=== PATIENT | male | born 1955 | race Caucasian/White ===

== ENCOUNTER → 2017-01-05 | Outpatient (CLI) | payer OTHER ==
[~2017-01-05] MED LIST: CHOL200012 PO; CIPR500T87 PO; CYAN1TAB29 PO; HYDR-882 PO; MV,M1TAB PO; TAMS0.4C2 PO; VITAMIN B6 PO
== END | disposition home or self-care (01) ==
LOC: CFH 10:46
PROVIDERS: ATTEND Internal Medicine Rheumatology
DX: M50.222 Other cervical disc displacement at C5-C6 level (principal); M48.02 Spinal stenosis, cervical region; M50.221 Other cervical disc displacement at C4-C5 level; M50.21 Other cervical disc displacement, high cervical region; M50.223 Other cervical disc displacement at C6-C7 level; M25.78 Osteophyte, vertebrae
CPT/HCPCS: 72141

== ENCOUNTER 2017-08-09 15:28 | Inpatient (IN) | payer OTHER ==
[~2017-08-09] VITALS: Ht 180.3 cm; Wt 79.8 kg
[2017-08-09] MEDS ORDERED: ALBUTEROL SULFATE 2.5MG/0.5ML NPPB ONE (16:30)
[2017-08-09] MEDS ORDERED: AZITHROMYCIN 500 MG in SODIUM CHLORIDE 0.9% 250 ML IVPB ONE (16:30)
[2017-08-09] MEDS ORDERED: CEFTRIAXONE PMX 1GM/50ML 50 ML IV ONE (16:30)
[2017-08-09] MEDS ORDERED: CEFTRIAXONE PMX 1GM/50ML 50 ML ONE (16:49)
[2017-08-09] MEDS ORDERED: OMNIPAQUE 350 MG/ML, 100ML BOTTLE ONE (17:16)
[2017-08-09] MEDS ORDERED: ALBUTEROL SULFATE 2.5 MG/3 ML ONE (18:07)
[2017-08-09] MEDS ORDERED: SODIUM CHLORIDE FLUSH 10ML SYR IVF PRN (18:30)
[2017-08-09] MEDS ORDERED: morphine SULFATE 10 MG/ML, 1ML IVPush PRN (20:00)
[2017-08-09] MEDS ORDERED: DOCUSATE 100 MG CAPSULE PO PRN (20:00)
[2017-08-09] MEDS ORDERED: ONDANSETRON 2MG/ML, 2ML IVPush PRN (20:00)
[2017-08-09] MEDS ORDERED: OXYcodone IR 5MG TABLET PO PRN (20:00)
[2017-08-09] MEDS ORDERED: GUAIFENESIN/DM 200-20MG, 10ML UDC PO PRN ×2 (20:00)
[2017-08-09] MEDS ORDERED: ACETAMINOPHEN 325 MG TABLET PO PRN (20:00)
[2017-08-09] MEDS ORDERED: hydrALAzine 20 MG/ML, 1ML IVPush PRN (20:00)
[2017-08-09 22:09] VITALS: BP 158/105
[2017-08-09] MEDS: SODIUM CHLORIDE 0.9% 1,000 ML IV SCH (23:02)
[2017-08-09] MEDS: GABAPENTIN 300 MG CAPSULE PO SCH (23:03)
[2017-08-09] MEDS: methylPREDNISolone SOD SUCC 40 MG/ML IVPush SCH (23:03)
[2017-08-09] MEDS: CYCLOBENZAPRINE 10 MG TABLET PO SCH (23:03)
[2017-08-09] MEDS: CIPROFLOXACIN/PMX 400MG/200ML 200 ML IV SCH (23:03)
[2017-08-10] MEDS ORDERED: ALBUTEROL SULFATE 2.5 MG/3 ML NPPB PRN (01:30)
[2017-08-10 02:00] VITALS: BP 173/105
[2017-08-10 06:00] LABS: BLOOD UREA NITROGEN 9 mg/dL (7-18)
[2017-08-10 06:02] LABS: HEMATOCRIT 41.3 % (39.2-51.8); HEMOGLOBIN 14.1 g/dL (13.7-18.0); WHITE BLOOD COUNT 3.8 x10^3/uL (3.4-10)
[2017-08-10] MEDS: methylPREDNISolone SOD SUCC 40 MG/ML IVPush SCH ×2 (06:02→11:15)
[2017-08-10 06:13] LABS: ASPARTATE AMINO TRANSFERASE 11 U/L (15-37)
[2017-08-10 08:32] VITALS: BP 165/108
[2017-08-10] MEDS: CIPROFLOXACIN/PMX 400MG/200ML 200 ML IV SCH ×2 (08:32→21:55)
[2017-08-10] MEDS: GABAPENTIN 300 MG CAPSULE PO SCH ×2 (08:34→21:56)
[2017-08-10] MEDS: CYCLOBENZAPRINE 10 MG TABLET PO SCH ×3 (08:34→21:56)
[2017-08-10] MEDS: MULTIVITAMINS/MINERALS TABLET PO SCH (08:34)
[2017-08-10] MEDS: SODIUM CHLORIDE 0.9% 1,000 ML IV SCH ×2 (08:34→21:57)
[2017-08-10] MEDS: DULOXETINE 30 MG CAPSULE.DR PO SCH (08:34)
[2017-08-10] MEDS: TAMSULOSIN 0.4 MG CAP.ER.24H PO SCH (08:34)
[2017-08-10] MEDS: CYANOCOBALOMIN 100MCG TABLET PO SCH (08:35)
[2017-08-10] MEDS: PYRIDOXINE 50MG TABLET PO SCH (08:35)
[2017-08-10] MEDS: CHOLECALCIFEROL 1,000 UNIT TABLET PO SCH (08:35)
[2017-08-10 09:40] VITALS: BP 135/76
[2017-08-10] MEDS ORDERED: FUROSEMIDE 20 MG/2 ML IV ONE (13:00)
[2017-08-10] MEDS ORDERED: POTASSIUM CHLORIDE 20 MEQ TAB.ER.PRT PO ONE (13:00)
[2017-08-10 13:22] VITALS: BP 139/92
[2017-08-10 20:00] VITALS: BP 131/85
[2017-08-10] MEDS: NICOTINE 21 MG/24 HR PATCH.TD24 TD PRN (22:12)
[2017-08-11 02:00] VITALS: BP 138/93
[2017-08-11 06:03] LABS: BLOOD UREA NITROGEN 14 mg/dL (7-18)
[2017-08-11 07:00] VITALS: BP 126/91
[2017-08-11 07:38] LABS: HEMATOCRIT 38.8 % (39.2-51.8); HEMOGLOBIN 13.8 g/dL (13.7-18.0); WHITE BLOOD COUNT 9.2 x10^3/uL (3.4-10)
[2017-08-11] MEDS: CIPROFLOXACIN/PMX 400MG/200ML 200 ML IV SCH (08:54)
[2017-08-11] MEDS: MULTIVITAMINS/MINERALS TABLET PO SCH (08:55)
[2017-08-11] MEDS: PYRIDOXINE 50MG TABLET PO SCH (08:55)
[2017-08-11] MEDS: CHOLECALCIFEROL 1,000 UNIT TABLET PO SCH (08:55)
[2017-08-11] MEDS: GABAPENTIN 300 MG CAPSULE PO SCH ×2 (08:55→21:02)
[2017-08-11] MEDS: SODIUM CHLORIDE 0.9% 1,000 ML IV SCH (08:55)
[2017-08-11] MEDS: DULOXETINE 30 MG CAPSULE.DR PO SCH (08:55)
[2017-08-11] MEDS: CYCLOBENZAPRINE 10 MG TABLET PO SCH ×3 (08:55→21:02)
[2017-08-11] MEDS: CYANOCOBALOMIN 100MCG TABLET PO SCH (08:55)
[2017-08-11] MEDS: TAMSULOSIN 0.4 MG CAP.ER.24H PO SCH (08:55)
[2017-08-11 12:42] VITALS: BP 126/82
[2017-08-11 20:06] VITALS: BP 128/80
[2017-08-11] MEDS: NICOTINE 21 MG/24 HR PATCH.TD24 TD PRN (23:56)
[2017-08-12 04:35] VITALS: BP 138/100
[2017-08-12 05:04] LABS: BLOOD UREA NITROGEN 17 mg/dL (7-18)
[2017-08-12 07:57] VITALS: BP 155/95
[2017-08-12] MEDS ORDERED: LISINOPRIL 5 MG TABLET PO SCH (09:00)
[2017-08-12] MEDS: DULOXETINE 30 MG CAPSULE.DR PO SCH (09:37)
[2017-08-12] MEDS: GABAPENTIN 300 MG CAPSULE PO SCH ×2 (09:37→20:06)
[2017-08-12] MEDS: CYCLOBENZAPRINE 10 MG TABLET PO SCH ×3 (09:37→20:05)
[2017-08-12] MEDS: CHOLECALCIFEROL 1,000 UNIT TABLET PO SCH (09:38)
[2017-08-12] MEDS: TAMSULOSIN 0.4 MG CAP.ER.24H PO SCH (09:38)
[2017-08-12] MEDS: PYRIDOXINE 50MG TABLET PO SCH (09:38)
[2017-08-12] MEDS: METOPROLOL SUCCINATE 25 MG TAB.ER.24H PO SCH (09:38)
[2017-08-12] MEDS: MULTIVITAMINS/MINERALS TABLET PO SCH (09:38)
[2017-08-12 09:59] LABS: IS PT STATUS REG ER OR PRE ER? NO
[2017-08-12] MEDS ORDERED: FUROSEMIDE 40 MG/4 ML IV ONE (10:30)
[2017-08-12 13:25] VITALS: BP 132/87
[2017-08-12 15:19] LABS: IS PT STATUS REG ER OR PRE ER? NO
[2017-08-12 19:34] VITALS: BP 112/83
[2017-08-12] MEDS: LISINOPRIL 5 MG TABLET PO SCH (20:05)
[2017-08-13 03:49] VITALS: BP 125/75
[2017-08-13 08:00] VITALS: BP 126/91
[2017-08-13] MEDS ORDERED: REGADENOSON 0.4 MG/5 ML SYRINGE ONE (08:03)
[2017-08-13] MEDS ORDERED: CYANOCOBALOMIN 100MCG TABLET PO SCH (09:00)
[2017-08-13] MEDS: DULOXETINE 30 MG CAPSULE.DR PO SCH (10:54)
[2017-08-13] MEDS: CYCLOBENZAPRINE 10 MG TABLET PO SCH (10:55)
[2017-08-13] MEDS: GABAPENTIN 300 MG CAPSULE PO SCH (10:55)
[2017-08-13] MEDS: METOPROLOL SUCCINATE 25 MG TAB.ER.24H PO SCH (10:55)
[2017-08-13] MEDS: LISINOPRIL 5 MG TABLET PO SCH (10:55)
[2017-08-13] MEDS: TAMSULOSIN 0.4 MG CAP.ER.24H PO SCH (10:55)
[2017-08-13] MEDS: PYRIDOXINE 50MG TABLET PO SCH (10:55)
[2017-08-13] MEDS: MULTIVITAMINS/MINERALS TABLET PO SCH (10:55)
[2017-08-13] MEDS: CHOLECALCIFEROL 1,000 UNIT TABLET PO SCH (10:56)
[2017-08-13 13:00] VITALS: BP 103/70
[2017-08-13] MEDS ORDERED: ATOR20TA9 PO (13:54)
[2017-08-13] MEDS ORDERED: POTA10TA5 PO (13:54)
[2017-08-13] MEDS ORDERED: FURO-93 PO (13:54)
[2017-08-13] MEDS ORDERED: METO25TA91 PO (13:54)
[2017-08-13] MEDS ORDERED: LISI5TAB7 PO (13:54)
[2017-08-13] MEDS ORDERED: ATORVASTATIN 20 MG TABLET PO SCH (21:00)
== END 2017-08-13 15:58 | disposition home health service (06) | DRG 291 ==
LOC: ED 16:11 → EDIP 18:28 → 4WST 20:47
PROVIDERS: ADMIT Hospitalist; ATTEND Hospitalist
DX: I11.0 Hypertensive heart disease with heart failure (principal); J96.01 Acute respiratory failure with hypoxia; E44.1 Mild protein-calorie malnutrition; E87.1 Hypo-osmolality and hyponatremia; I50.43 Acute on chronic combined systolic (congestive) and diastolic (congestive) heart failure; E78.5 Hyperlipidemia, unspecified; F17.210 Nicotine dependence, cigarettes, uncomplicated; G47.30 Sleep apnea, unspecified; G89.29 Other chronic pain; I49.3 Ventricular premature depolarization; J06.9 Acute upper respiratory infection, unspecified; J84.10 Pulmonary fibrosis, unspecified; M06.9 Rheumatoid arthritis, unspecified; N40.0 Benign prostatic hyperplasia without lower urinary tract symptoms; Z98.1 Arthrodesis status; Z68.24 Body mass index [BMI] 24.0-24.9, adult
CPT/HCPCS: 36415; 71275; 78452; 80048; 80053; 80061; 83605; 83735; 84100; 84443; 84484; 85025; 87040; 87324; 93005; 93017; 93306; 94640; J0456; J0696; J0744; J1940; J2785; J7611; Q9967; A9502; C9898; J2920; J7030; J7050; J7512

== ENCOUNTER → 2017-08-09 | Outpatient (CLI) | payer OTHER ==
[~2017-08-09] MED LIST changes: +ACET-1600 PO; -CHOL200012 PO; +CHOL200074 PO; +CYCL-259 PO; +DULO30CA2 PO; +GABA300C10 PO; +OXYC5CAP2 PO; +Robitussin DM PO
[2017-08-09 11:24] LABS: HEMATOCRIT 44.9 % (39.2-51.8); HEMOGLOBIN 15.1 g/dL (13.7-18.0); WHITE BLOOD COUNT 7.7 x10^3/uL (3.4-10)
[2017-08-09 11:37] LABS: ASPARTATE AMINO TRANSFERASE 16 U/L (15-37); BLOOD UREA NITROGEN 13 mg/dL (7-18)
== END | disposition home or self-care (01) ==
LOC: STAR 10:21
PROVIDERS: ATTEND Neurological Surgery
DX: Z01.818 Encounter for other preprocedural examination (principal); M50.322 Other cervical disc degeneration at C5-C6 level
CPT/HCPCS: 36415; 71020; 80053; 81003; 85025; 85610; 85730; 93005

== ENCOUNTER 2017-08-15 06:34 | Inpatient (IN) | payer OTHER ==
[~2017-08-15] VITALS: Ht 180.3 cm; Wt 81.7 kg
[~2017-08-15 06:34] MED LIST changes: +ATOR20TA9 PO; +BACITRACIN 50,000 UNIT ONE; +BUPIVACAINE/PF 0.5% ONE; +EPINEPHRINE 1 MG/ML, 1ML ONE; +FURO-93 PO; +LISI5TAB7 PO; +METO25TA91 PO; +POTA10TA5 PO; +THROMBIN 5,000 UNIT VIAL TP ONE
[2017-08-15] MEDS ORDERED: LACTATED RINGERS 1,000 ML IV SCH ×2 (07:15→20:00)
[2017-08-15] MEDS ORDERED: NICO-487 TD (07:23)
[2017-08-15 07:24] VITALS: BP 93/64
[2017-08-15] MEDS ORDERED: LIDOCAINE 1%, 2ML SQ PRN (07:30)
[2017-08-15] MEDS ORDERED: MIDAZOLAM 1 MG/ML, 2ML ONE (12:39)
[2017-08-15] MEDS ORDERED: FENTANYL PF 100 MCG/2ML ONE ×2 (12:39)
[2017-08-15] MEDS ORDERED: NEOSTIGMINE 1 MG/ML, 10ML ONE (12:40)
[2017-08-15] MEDS ORDERED: PROPOFOL 10 MG/ML, 20ML ONE (12:40)
[2017-08-15] MEDS ORDERED: GLYCOPYRROLATE 0.4 MG/2 ML, 2ML ONE (12:41)
[2017-08-15] MEDS ORDERED: CEFAZOLIN 1,000 MG ONE ×2 (12:41)
[2017-08-15] MEDS ORDERED: SODIUM CHLORIDE 0.9% PF 10ML ONE (12:41)
[2017-08-15] MEDS ORDERED: PROPOFOL 50 ML ONE (12:43)
[2017-08-15] MEDS ORDERED: ROCURONIUM 10 MG/ML,10ML ONE (13:46)
[2017-08-15] MEDS ORDERED: DEXAMETHASONE 4 MG/ML, 1ML ONE ×3 (14:47)
[2017-08-15] MEDS ORDERED: PHENYLEPHRINE 10 MG/ML ONE (14:57)
[2017-08-15] MEDS ORDERED: FENTANYL PF 100 MCG/2ML IV PRN (15:00)
[2017-08-15] MEDS ORDERED: ALBUTEROL SULFATE 2.5 MG/3 ML NPPB PRN (15:00)
[2017-08-15] MEDS ORDERED: HYDROmorphone 1 MG/ML, 1ML IV PRN (15:00)
[2017-08-15] MEDS ORDERED: OXYcodone 5 MG/5 ML ORAL.SOL UDC PO PRN (15:00)
[2017-08-15] MEDS ORDERED: PROMETHAZINE 25 MG/ML, 1ML IV PRN (15:00)
[2017-08-15] MEDS ORDERED: DIAZEPAM 5 MG/ML, 2ML IVPush PRN (15:00)
[2017-08-15] MEDS ORDERED: hydrALAzine 20 MG/ML, 1ML IV PRN (15:00)
[2017-08-15] MEDS ORDERED: LABETALOL 5MG/ML, 20ML IV PRN (15:00)
[2017-08-15] MEDS ORDERED: ACETAMINOPHEN 325 MG TABLET PO PRN ×2 (15:00→18:00)
[2017-08-15] MEDS ORDERED: ONDANSETRON 2MG/ML, 2ML IVPush PRN (15:00)
[2017-08-15] MEDS ORDERED: MEPERIDINE/PF 25MG/0.5ML IVPush PRN (15:00)
[2017-08-15] MEDS ORDERED: EPHEDRINE 50 MG/ML, 1ML ONE (15:22)
[2017-08-15 16:32] LABS: ASPARTATE AMINO TRANSFERASE 15 U/L (15-37); BLOOD UREA NITROGEN 27 mg/dL (7-18)
[2017-08-15 16:37] LABS: IS PT STATUS REG ER OR PRE ER? YES
[2017-08-15 17:23] VITALS: BP 101/68
[2017-08-15] MEDS ORDERED: ACETAMINOPHEN 500 MG TABLET PO PRN (18:30)
[2017-08-15] MEDS ORDERED: NICOTINE 21 MG/24 HR PATCH.TD24 TD ONE (18:30)
[2017-08-15] MEDS ORDERED: LACTATED RINGERS 500 ML IVBOLUS ONE (18:30)
[2017-08-15] MEDS ORDERED: OXYcodone IR 5MG TABLET PO PRN (18:30)
[2017-08-15 18:44] VITALS: BP 95/67
[2017-08-15] MEDS: CYCLOBENZAPRINE 10 MG TABLET PO SCH (19:49)
[2017-08-15] MEDS: GABAPENTIN 300 MG CAPSULE PO SCH (19:49)
[2017-08-15] MEDS ORDERED: ATORVASTATIN 20 MG TABLET PO SCH (21:00)
[2017-08-15 22:43] LABS: IS PT STATUS REG ER OR PRE ER? NO
[2017-08-16 02:10] VITALS: BP 119/83
[2017-08-16 05:46] LABS: IS PT STATUS REG ER OR PRE ER? NO
[2017-08-16 08:50] VITALS: BP 139/89
[2017-08-16] MEDS ORDERED: DULOXETINE 30 MG CAPSULE.DR PO SCH (09:00)
[2017-08-16] MEDS ORDERED: TAMSULOSIN 0.4 MG CAP.ER.24H PO SCH (09:00)
[2017-08-16] MEDS: CYCLOBENZAPRINE 10 MG TABLET PO SCH ×2 (09:34→14:45)
[2017-08-16] MEDS: GABAPENTIN 300 MG CAPSULE PO SCH (09:34)
[2017-08-16 14:05] VITALS: BP 100/65
[2017-08-16 14:25] VITALS: BP 115/74
== END 2017-08-16 17:18 | disposition home or self-care (01) | DRG 315 ==
LOC: ORIP 06:34 → 5SO 16:46
PROVIDERS: ADMIT Neurological Surgery; ATTEND Neurological Surgery
DX: I95.9 Hypotension, unspecified (principal); I50.42 Chronic combined systolic (congestive) and diastolic (congestive) heart failure; E86.0 Dehydration; F17.210 Nicotine dependence, cigarettes, uncomplicated; G47.33 Obstructive sleep apnea (adult) (pediatric); G89.29 Other chronic pain; M06.9 Rheumatoid arthritis, unspecified; M50.323 Other cervical disc degeneration at C6-C7 level; G80.9 Cerebral palsy, unspecified; Z53.9 Procedure and treatment not carried out, unspecified reason
CPT/HCPCS: 36415; 72125; 80053; 83605; 84484; 86850; 86900; 93005; J0171; J0690; J1100; J2250; J2704; J2710; J3010; J3490; J7120; J2370

== ENCOUNTER 2017-11-30 11:01 | Inpatient (IN) | payer OTHER ==
[~2017-11-30] VITALS: Ht 177.8 cm; Wt 51.4 kg
[~2017-11-30 11:01] MED LIST changes: -BACITRACIN 50,000 UNIT ONE; -BUPIVACAINE/PF 0.5% ONE; +CARV6.2512 NG; +DIGO50SO2 NG; +ENOX40SY4 SQ; -EPINEPHRINE 1 MG/ML, 1ML ONE; +IPRA3AMP NPPB; +LACT20SO13 NG; +LISI-167 NG; +MORP10VI10 IV; +NICO-486 TD; +NICO-487 TD; +ONDA4VIA4 IVPush; +OXYC5TAB3 NG; +SENN1TAB7 NG; -THROMBIN 5,000 UNIT VIAL TP ONE
[2017-11-30] MEDS ORDERED: SODIUM CHLORIDE FLUSH 10ML SYR IVF ONE (11:30)
[2017-11-30] MEDS ORDERED: PLEASE ENTER HEIGHT AND WEIGHT MC SCH (11:30)
[2017-11-30 11:39] LABS: BASOPHILS # (AUTO) 0.01 x10^3/uL (0-0.1); BASOPHILS % (AUTO) 0 % (0-1); EOSINOPHILS # (AUTO) 0.09 x10^3/uL (0-0.4); EOSINOPHILS % (AUTO) 1 % (1-7); LYMPHOCYTES # (AUTO) 0.86 x10^3/uL (1-3.4); LYMPHOCYTES % (AUTO) 12 % (22-44); MD NO; MEAN CORPUSCULAR HEMOGLOBIN 28.6 pg (27.5-34.5); MEAN CORPUSCULAR HGB CONC 33.8 g/dL (33.2-36.2); MEAN CORPUSCULAR VOLUME 84.6 fL (81-97); MEAN PLATELET VOLUME 7.3 fL (7.4-10.4); MONOCYTES % (AUTO) 10 % (2-9); NEUTROPHILS # (AUTO) 5.55 x10^3/uL (1.8-6.8); NEUTROPHILS % (AUTO) 77 % (42-75); PLATELET COUNT 340 x10^3/uL (130-400); RED BLOOD COUNT 3.73 x10^6/uL (4.38-5.82); RED CELL DISTRIBUTION WIDTH 17.2 % (9.4-14.8)
[2017-11-30 11:43] LABS: INTERNATIONAL NORMALIZED RATIO 1.06 (0.93-1.1); PROTHROMBIN TIME 10.9 Seconds (9.6-11.5)
[2017-11-30 11:48] LABS: ALANINE AMINOTRANSFERASE 10 U/L (12-78); ALBUMIN 2.6 g/dL (3.4-5.0); ANION GAP 9 mmol/L (5-15); CALCIUM 9.2 mg/dL (8.5-10.1); CHLORIDE 102 mmol/L (98-107); CREATININE 0.87 mg/dL (0.7-1.3)
[2017-11-30 11:50] LABS: ALKALINE PHOSPHATASE 72 U/L (45-117); BILIRUBIN,TOTAL 0.3 mg/dL (0.2-1.0); TOTAL PROTEIN 6.7 g/dL (6.4-8.2)
[2017-11-30] MEDS ORDERED: ASPIRIN 81 MG TABLET CHEW ONE (11:53)
[2017-11-30] MEDS ORDERED: ASPIRIN 325 MG TABLET PO ONE (12:00)
[2017-11-30] MEDS ORDERED: DOXY100C2 PO (12:04)
[2017-11-30] MEDS ORDERED: HYDR200T72 PO (12:04)
[2017-11-30] MEDS ORDERED: CARV12.52 PO (12:04)
[2017-11-30] MEDS ORDERED: digoxin PO (12:04)
[2017-11-30] MEDS ORDERED: NAPR-850 PO (12:04)
[2017-11-30] MEDS ORDERED: OMNIPAQUE 350 MG/ML, 100ML BOTTLE ONE (12:45)
[2017-11-30] MEDS ORDERED: POLYETHYLENE GLYCOL 17 GM PACKET PO PRN (14:30)
[2017-11-30] MEDS ORDERED: ONDANSETRON 2MG/ML, 2ML IVPush PRN (14:30)
[2017-11-30] MEDS ORDERED: LABETALOL 5MG/ML, 20ML IVPush PRN (14:30)
[2017-11-30] MEDS ORDERED: ONDANSETRON ODT 4 MG PO PRN (14:30)
[2017-11-30] MEDS ORDERED: FERR325T5 PO (14:42)
[2017-11-30 14:50] VITALS: BP 127/82
[2017-11-30 15:34] LABS: HEMOGLOBIN A1C 4.3 % (4.2-6.3)
[2017-11-30 16:34] LABS: TROPONIN I < 0.015 ng/mL (0.000-0.045)
[2017-11-30] MEDS: ENOXAPARIN 40 MG/0.4 ML SQ SCH (17:00)
[2017-11-30 18:11] VITALS: BP 117/76
[2017-11-30] MEDS ORDERED: ALBUTEROL/IPRATROPIUM 2.5MG/0.5MG, 3 ML NPPB PRN (18:30)
[2017-11-30 20:20] VITALS: BP 113/77
[2017-11-30] MEDS ORDERED: ALUMINUM/MAG/SIMETHICONE 30 ML UDC PO ONE (21:00)
[2017-11-30] MEDS ORDERED: CARVEDILOL 12.5 MG TABLET PO SCH ×2 (21:00)
[2017-11-30] MEDS ORDERED: CARVEDILOL 3.125 MG TABLET PO SCH (21:11)
[2017-11-30] MEDS: ATORVASTATIN 20 MG TABLET PO SCH (21:19)
[2017-11-30] MEDS: CARVEDILOL 3.125 MG TABLET PO SCH (21:19)
[2017-11-30] MEDS: TAMSULOSIN 0.4 MG CAP.ER.24H PO SCH (21:23)
[2017-11-30 22:34] LABS: TROPONIN I < 0.015 ng/mL (0.000-0.045)
[2017-12-01 01:09] VITALS: BP 116/78
[2017-12-01 05:04] LABS: BASOPHILS # (AUTO) 0.02 x10^3/uL (0-0.1); BASOPHILS % (AUTO) 0 % (0-1); EOSINOPHILS # (AUTO) 0.07 x10^3/uL (0-0.4); EOSINOPHILS % (AUTO) 1 % (1-7); LYMPHOCYTES # (AUTO) 0.74 x10^3/uL (1-3.4); LYMPHOCYTES % (AUTO) 15 % (22-44); MD NO; MEAN CORPUSCULAR HEMOGLOBIN 28.2 pg (27.5-34.5); MEAN CORPUSCULAR HGB CONC 33.4 g/dL (33.2-36.2); MEAN CORPUSCULAR VOLUME 84.4 fL (81-97); MEAN PLATELET VOLUME 7.4 fL (7.4-10.4); MONOCYTES # (AUTO) 0.45 x10^3/uL (0.2-0.8); MONOCYTES % (AUTO) 9 % (2-9); NEUTROPHILS # (AUTO) 3.78 x10^3/uL (1.8-6.8); NEUTROPHILS % (AUTO) 75 % (42-75); PLATELET COUNT 342 x10^3/uL (130-400); RED CELL DISTRIBUTION WIDTH 17.1 % (9.4-14.8)
[2017-12-01 05:10] LABS: ALBUMIN 2.4 g/dL (3.4-5.0); CALCIUM 8.9 mg/dL (8.5-10.1); CHLORIDE 102 mmol/L (98-107)
[2017-12-01 05:19] LABS: ALANINE AMINOTRANSFERASE 12 U/L (12-78); ALKALINE PHOSPHATASE 65 U/L (45-117); ANION GAP 6 mmol/L (5-15); BILIRUBIN,TOTAL 0.2 mg/dL (0.2-1.0); CHOL/HDL RATIO 3.1; CHOLESTEROL, TOTAL 131 mg/dL (140-239); CREATININE 0.78 mg/dL (0.7-1.3); HDL CHOL % 32 % (26-37); HDL CHOLESTEROL (DIRECT) 42 mg/dL (40-60); LDL CHOLESTEROL,CALCULATED 72 mg/dL (54-169); LDL/HDL RATIO 1.7 (0.5-3.0); TOTAL PROTEIN 6.5 g/dL (6.4-8.2); TRIGLYCERIDES 85 mg/dL (50-200); VLDL CHOLESTEROL 17 mg/dL (0-25)
[2017-12-01 05:20] LABS: TROPONIN I < 0.015 ng/mL (0.000-0.045)
[2017-12-01 08:44] VITALS: BP 118/64
[2017-12-01] MEDS: SENNA/DOCUSATE TABLET PO SCH (09:00)
[2017-12-01] MEDS: CARVEDILOL 3.125 MG TABLET PO SCH ×2 (09:40→21:32)
[2017-12-01] MEDS: ASPIRIN 81 MG TABLET EC PO SCH (09:40)
[2017-12-01] MEDS: TAMSULOSIN 0.4 MG CAP.ER.24H PO SCH ×2 (09:40→21:38)
[2017-12-01 14:51] VITALS: BP 102/68
[2017-12-01] MEDS: ENOXAPARIN 40 MG/0.4 ML SQ SCH (15:30)
[2017-12-01 18:37] VITALS: BP 106/74
[2017-12-01] MEDS: ATORVASTATIN 20 MG TABLET PO SCH (21:32)
[2017-12-02 03:02] VITALS: BP 110/71
[2017-12-02] MEDS: ASPIRIN 81 MG TABLET EC PO SCH (06:12)
[2017-12-02 07:58] VITALS: BP 113/78
[2017-12-02] MEDS: CARVEDILOL 3.125 MG TABLET PO SCH ×2 (08:07→22:15)
[2017-12-02] MEDS: TAMSULOSIN 0.4 MG CAP.ER.24H PO SCH ×2 (08:07→22:15)
[2017-12-02] MEDS: SENNA/DOCUSATE TABLET PO SCH (08:08)
[2017-12-02] MEDS: HYDROXYCHLOROQUINE 200 MG TABLET PO SCH ×2 (11:30→22:15)
[2017-12-02 12:24] LABS: BASOPHILS # (AUTO) 0.01 x10^3/uL (0-0.1); BASOPHILS % (AUTO) 0 % (0-1); EOSINOPHILS # (AUTO) 0.06 x10^3/uL (0-0.4); EOSINOPHILS % (AUTO) 1 % (1-7); LYMPHOCYTES # (AUTO) 0.73 x10^3/uL (1-3.4); LYMPHOCYTES % (AUTO) 12 % (22-44); MD NO; MEAN CORPUSCULAR HGB CONC 33.1 g/dL (33.2-36.2); MEAN CORPUSCULAR VOLUME 84.7 fL (81-97); MEAN PLATELET VOLUME 7.4 fL (7.4-10.4); MONOCYTES # (AUTO) 0.48 x10^3/uL (0.2-0.8); MONOCYTES % (AUTO) 8 % (2-9); NEUTROPHILS # (AUTO) 4.61 x10^3/uL (1.8-6.8); NEUTROPHILS % (AUTO) 78 % (42-75); PLATELET COUNT 390 x10^3/uL (130-400); RED BLOOD COUNT 3.76 x10^6/uL (4.38-5.82); RED CELL DISTRIBUTION WIDTH 16.6 % (9.4-14.8)
[2017-12-02 12:35] LABS: ALANINE AMINOTRANSFERASE 12 U/L (12-78); ALBUMIN 2.6 g/dL (3.4-5.0); ANION GAP 7 mmol/L (5-15); CALCIUM 9.1 mg/dL (8.5-10.1); CHLORIDE 99 mmol/L (98-107); CREATININE 0.83 mg/dL (0.7-1.3)
[2017-12-02 12:37] LABS: ALKALINE PHOSPHATASE 70 U/L (45-117); BILIRUBIN,TOTAL 0.2 mg/dL (0.2-1.0); TOTAL PROTEIN 7.2 g/dL (6.4-8.2)
[2017-12-02 13:42] VITALS: BP 112/69
[2017-12-02] MEDS: ENOXAPARIN 40 MG/0.4 ML SQ SCH (15:31)
[2017-12-02] MEDS: FERROUS SULFATE 325 MG TABLET PO SCH ×2 (15:31→22:15)
[2017-12-02 19:10] VITALS: BP 122/81
[2017-12-02 20:07] LABS: MICROSCOPIC INDICATED
[2017-12-02 20:13] LABS: CULTURE INDICATED? NO
[2017-12-02] MEDS: ATORVASTATIN 20 MG TABLET PO SCH (22:15)
[2017-12-03 01:16] VITALS: BP 117/79
[2017-12-03] MEDS: ASPIRIN 81 MG TABLET EC PO SCH (05:52)
[2017-12-03 07:54] VITALS: BP 118/76
[2017-12-03] MEDS: FERROUS SULFATE 325 MG TABLET PO SCH ×2 (08:12→16:44)
[2017-12-03] MEDS: TAMSULOSIN 0.4 MG CAP.ER.24H PO SCH (08:12)
[2017-12-03] MEDS: CARVEDILOL 3.125 MG TABLET PO SCH (08:12)
[2017-12-03] MEDS: HYDROXYCHLOROQUINE 200 MG TABLET PO SCH (08:13)
[2017-12-03] MEDS: SENNA/DOCUSATE TABLET PO SCH (08:13)
[2017-12-03 12:47] VITALS: BP 101/71
[2017-12-03] MEDS ORDERED: PNEUMOCOCCAL 23 VACCINE IM-VACC ONE (13:30)
[2017-12-03] MEDS ORDERED: ATOR20TA9 PO (16:42)
[2017-12-03] MEDS ORDERED: ASPI-621 PO (16:42)
== END 2017-12-03 18:03 | disposition home or self-care (01) | DRG 69 ==
LOC: ED 13:12 → 4WST 13:13 → ED 14:00 → 4WST 14:40 → 5SO 17:55 → 4WST 12-01 19:25
PROVIDERS: ADMIT Hospitalist; ATTEND Hospitalist
DX: G45.9 Transient cerebral ischemic attack, unspecified (principal); E43 Unspecified severe protein-calorie malnutrition; I11.0 Hypertensive heart disease with heart failure; I50.42 Chronic combined systolic (congestive) and diastolic (congestive) heart failure; E27.40 Unspecified adrenocortical insufficiency; E87.1 Hypo-osmolality and hyponatremia; I48.91 Unspecified atrial fibrillation; R47.01 Aphasia; Z68.1 Body mass index [BMI] 19.9 or less, adult; D64.9 Anemia, unspecified; F17.200 Nicotine dependence, unspecified, uncomplicated; G89.29 Other chronic pain; M06.9 Rheumatoid arthritis, unspecified; N40.0 Benign prostatic hyperplasia without lower urinary tract symptoms; Z80.0 Family history of malignant neoplasm of digestive organs; Z82.3 Family history of stroke
CPT/HCPCS: 36415; 70450; 70496; 70498; 70551; 71045; 71046; 80053; 80061; 81001; 83036; 83735; 84100; 84439; 84443; 84484; 85025; 85610; 87040; 90732; 93005; 93306; 93880; 95819; 99291; J1650; Q9967; 92523-GN

== ENCOUNTER 2018-01-05 10:04 | Day surgery (SDC) | payer OTHER ==
[~2018-01-05 10:04] MED LIST changes: +ASPI-621 PO; +CARV12.52 PO; +DOXY100C2 PO; +FERR325T5 PO; +HYDR200T72 PO; +NAPR-850 PO; +digoxin PO
[2018-01-05] MEDS ORDERED: LIDOCAINE 1%-EPI 1:100K, 20ML SQ PRN (10:30)
[2018-01-05] MEDS ORDERED: FERROUS SULFATE PO SCH (16:00)
[2018-01-05] MEDS ORDERED: CARVEDILOL 12.5 MG TABLET PO SCH (21:00)
[2018-01-05] MEDS ORDERED: DOXYCYCLINE 100MG CAP PO SCH (21:00)
[2018-01-05] MEDS ORDERED: ATORVASTATIN 20 MG TABLET PO SCH (21:00)
[2018-01-05] MEDS ORDERED: TAMSULOSIN 0.4 MG CAP.ER.24H PO SCH (21:00)
[2018-01-06] MEDS ORDERED: ASPIRIN 81 MG TABLET EC PO SCH (06:00)
== END 2018-01-05 11:32 | disposition home or self-care (01) ==
LOC: CACL 10:04
PROVIDERS: ATTEND Internal Medicine Cardiovascular Disease
DX: Z45.09 Encounter for adjustment and management of other cardiac device (principal); I63.9 Cerebral infarction, unspecified; M54.2 Cervicalgia; G47.30 Sleep apnea, unspecified; M06.9 Rheumatoid arthritis, unspecified; I10 Essential (primary) hypertension; I48.91 Unspecified atrial fibrillation; G45.9 Transient cerebral ischemic attack, unspecified; Z79.82 Long term (current) use of aspirin
CPT/HCPCS: 33282; C1764

== ENCOUNTER → 2018-02-16 | Outpatient (CLI) | payer OTHER | END | disposition home or self-care (01) | LOC: CFH 09:28 | PROVIDERS: ATTEND Nurse Practitioner | DX: J84.9 Interstitial pulmonary disease, unspecified (principal); J84.10 Pulmonary fibrosis, unspecified; M06.9 Rheumatoid arthritis, unspecified | CPT/HCPCS: 71250 ==

== ENCOUNTER → 2018-03-28 | Outpatient (CLI) | payer OTHER ==
[~2018-03-28] MED LIST changes: +APIX5TAB PO; +CHOL500045 PO; -IPRA3AMP NPPB; +IPRA3AMP30 NPPB; +IRON PO; +MULTIVITAMIN PO; +VITAMIN B12 PO
[2018-03-28 11:40] LABS: MICROSCOPIC NOT IND
[2018-03-28 11:49] LABS: CULTURE INDICATED? NO
[2018-03-28 11:58] LABS: BASOPHILS # (AUTO) 0.02 x10^3/uL (0-0.1); BASOPHILS % (AUTO) 0 % (0-1); EOSINOPHILS # (AUTO) 0.04 x10^3/uL (0-0.4); EOSINOPHILS % (AUTO) 1 % (1-7); LYMPHOCYTES % (AUTO) 21 % (22-44); MD NO; MEAN CORPUSCULAR HEMOGLOBIN 30.4 pg (27.5-34.5); MEAN CORPUSCULAR HGB CONC 33.9 g/dL (33.2-36.2); MEAN CORPUSCULAR VOLUME 89.7 fL (81-97); MEAN PLATELET VOLUME 7.7 fL (7.4-10.4); MONOCYTES % (AUTO) 9 % (2-9); NEUTROPHILS # (AUTO) 3.83 x10^3/uL (1.8-6.8); NEUTROPHILS % (AUTO) 68 % (42-75); PLATELET COUNT 281 x10^3/uL (130-400); RED BLOOD COUNT 4.37 x10^6/uL (4.38-5.82); RED CELL DISTRIBUTION WIDTH 21.3 % (9.4-14.8)
[2018-03-28 12:04] LABS: INTERNATIONAL NORMALIZED RATIO 1.1 (0.93-1.1); PROTHROMBIN TIME 11.4 Seconds (9.6-11.5)
[2018-03-28 12:35] LABS: CHLORIDE 107 mmol/L (98-107)
[2018-03-28 12:37] LABS: HEMOGLOBIN A1C 4.6 % (4.2-6.3)
[2018-03-28 12:41] LABS: ALANINE AMINOTRANSFERASE 21 U/L (12-78); ALBUMIN 3.5 g/dL (3.4-5.0); ALKALINE PHOSPHATASE 109 U/L (45-117); ANION GAP 7 mmol/L (5-15); BILIRUBIN,TOTAL 0.5 mg/dL (0.2-1.0); CALCIUM 9.2 mg/dL (8.5-10.1); CREATININE 0.86 mg/dL (0.7-1.3); TOTAL PROTEIN 7.4 g/dL (6.4-8.2)
== END | disposition home or self-care (01) ==
LOC: STAR 10:27
PROVIDERS: ATTEND Orthopaedic Surgery
DX: M16.12 Unilateral primary osteoarthritis, left hip (principal)
CPT/HCPCS: 36415; 80053; 81003; 83036; 85025; 85610; 85730; 87081; 87806; 93005; G0475

== ENCOUNTER 2018-04-03 11:35 | Inpatient (IN) | payer OTHER ==
[~2018-04-03] VITALS: Ht 180.3 cm; Wt 65.3 kg
[2018-04-03] MEDS: DOXYCYCLINE 100MG TABLET PO SCH (09:00)
[~2018-04-03 11:35] MED LIST changes: +EPINEPHRINE 1 MG/ML, 1ML ONE; +KETOROLAC 60 MG/2 ML ONE; +ROPIvacaine/PF 0.2%, 20 ML ONE; +TRANEXAMIC ACID 100 MG/ML, 10ML ONE
[2018-04-03] MEDS ORDERED: LACTATED RINGERS 1,000 ML IV SCH (12:32)
[2018-04-03 12:37] VITALS: BP 124/80
[2018-04-03] MEDS ORDERED: ACETAMINOPHEN 500 MG TABLET PO ONE (13:00)
[2018-04-03] MEDS ORDERED: VANCOMYCIN PER PHARMACY MC PRN (13:00)
[2018-04-03] MEDS ORDERED: VANCOMYCIN 1,600 MG in SODIUM CHLORIDE 0.9% 250 ML IV ONE (13:00)
[2018-04-03] MEDS ORDERED: GABAPENTIN 300 MG CAPSULE PO ONE (13:00)
[2018-04-03] MEDS ORDERED: MIDAZOLAM 1 MG/ML, 2ML ONE (13:53)
[2018-04-03] MEDS ORDERED: FENTANYL PF 250 MCG/5ML ONE (13:53)
[2018-04-03] MEDS ORDERED: PROPOFOL 10 MG/ML, 20ML ONE (13:54)
[2018-04-03] MEDS ORDERED: ROCURONIUM 10MG/ML,5ML ONE (13:54)
[2018-04-03] MEDS ORDERED: CEFAZOLIN 1,000 MG ONE ×2 (13:55)
[2018-04-03] MEDS ORDERED: GLYCOPYRROLATE 0.4 MG/2 ML, 2ML ONE (13:55)
[2018-04-03] MEDS ORDERED: WATER-INJECTION,STERILE 10 ML IV ONE (13:55)
[2018-04-03] MEDS ORDERED: NEOSTIGMINE 1 MG/ML, 10ML ONE (13:55)
[2018-04-03] MEDS ORDERED: TRANEXAMIC ACID 100 MG/ML, 10ML ONE ×2 (14:05)
[2018-04-03] MEDS ORDERED: VANCOMYCIN 1,000 MG ONE (14:06)
[2018-04-03] MEDS ORDERED: LABETALOL 5MG/ML, 20ML IV PRN (15:00)
[2018-04-03] MEDS ORDERED: MORPHINE SULFATE 4 MG/ML, 1ML IVPush PRN (15:00)
[2018-04-03] MEDS ORDERED: PROMETHAZINE 25 MG SUPP PR PRN (15:00)
[2018-04-03] MEDS ORDERED: ONDANSETRON ODT 8 MG PO PRN (15:00)
[2018-04-03] MEDS ORDERED: ONDANSETRON 2MG/ML, 2ML IV PRN (15:00)
[2018-04-03] MEDS ORDERED: hydrALAzine 20 MG/ML, 1ML IV PRN (15:00)
[2018-04-03] MEDS ORDERED: MEPERIDINE/PF 25MG/0.5ML IVPush PRN (15:00)
[2018-04-03] MEDS ORDERED: OXYcodone 5 MG/5 ML ORAL.SOL UDC PO PRN (15:00)
[2018-04-03] MEDS ORDERED: PROMETHAZINE 12.5 MG SUPP PR PRN (15:00)
[2018-04-03] MEDS ORDERED: HYDROmorphone 1 MG/ML, 1ML IV PRN ×2 (15:00→17:00)
[2018-04-03] MEDS ORDERED: PROMETHAZINE 25 MG/ML, 1ML IV PRN (15:00)
[2018-04-03] MEDS ORDERED: PHENYLEPHRINE 10 MG/ML ONE (16:17)
[2018-04-03] MEDS ORDERED: DIPHENHYDRAMINE 25 MG CAPSULE PO PRN (17:00)
[2018-04-03] MEDS ORDERED: MAGNESIUM HYDROXIDE 8%, 30ML UDC PO PRN (17:00)
[2018-04-03] MEDS ORDERED: TRANEXAMIC ACID 1,000 MG in SODIUM CHLORIDE 0.9% 100 ML IVPB ONE (17:00)
[2018-04-03] MEDS ORDERED: SENNA/DOCUSATE TABLET PO PRN (17:00)
[2018-04-03] MEDS ORDERED: ACETAMINOPHEN 650 MG/20.3 ML UDC PO PRN (17:00)
[2018-04-03] MEDS ORDERED: ALUMINUM/MAG/SIMETHICONE 30 ML UDC PO PRN (17:00)
[2018-04-03] MEDS ORDERED: FENTANYL PF 100 MCG/2ML ONE (17:06)
[2018-04-03] MEDS ORDERED: OXYcodone 5 MG/5 ML ORAL.SOL UDC ONE (17:06)
[2018-04-03] MEDS: FENTANYL PF 100 MCG/2ML IV PRN ×3 (17:15→17:29)
[2018-04-03] MEDS: D5%-0.45NACL+KCL 20MEQ 1,000 ML IV SCH (18:29)
[2018-04-03 19:22] VITALS: BP 100/61
[2018-04-03] MEDS: CARVEDILOL 3.125 MG TABLET PO SCH (20:00)
[2018-04-03] MEDS: DIGOXIN MC SCH (20:00)
[2018-04-03] MEDS: HYDROXYCHLOROQUINE 200 MG TABLET PO SCH (20:43)
[2018-04-03] MEDS: DOCUSATE 100 MG CAPSULE PO SCH (20:43)
[2018-04-03] MEDS: TAMSULOSIN 0.4 MG CAP.ER.24H PO SCH (20:44)
[2018-04-03] MEDS ORDERED: DIGOXIN 0.125 MG TABLET PO SCH (21:00)
[2018-04-03] MEDS ORDERED: ATORVASTATIN 20 MG TABLET PO SCH (21:00)
[2018-04-03] MEDS: CEFAZOLIN PMX 1GM/50ML 50 ML IVPB SCH (22:10)
[2018-04-03 23:35] VITALS: BP 101/70
[2018-04-04] MEDS ORDERED: VANCOMYCIN PMX 1GM/200ML 200 ML IVPB ONE (02:00)
[2018-04-04] MEDS: D5%-0.45NACL+KCL 20MEQ 1,000 ML IV SCH ×2 (02:48→12:48)
[2018-04-04 03:31] VITALS: BP 118/69
[2018-04-04] MEDS: DIGOXIN MC SCH ×2 (04:00→12:00)
[2018-04-04] MEDS: CEFAZOLIN PMX 1GM/50ML 50 ML IVPB SCH (05:27)
[2018-04-04] MEDS: CARVEDILOL 3.125 MG TABLET PO SCH (05:28)
[2018-04-04] MEDS: OXYcodone IR 5MG TABLET PO PRN ×3 (05:40→13:47)
[2018-04-04] MEDS ORDERED: DEXAMETHASONE 4 MG/ML, 1ML IVPush SCH (06:00)
[2018-04-04 08:09] VITALS: BP 102/69
[2018-04-04] MEDS: TAMSULOSIN 0.4 MG CAP.ER.24H PO SCH (08:30)
[2018-04-04] MEDS: DOCUSATE 100 MG CAPSULE PO SCH (08:32)
[2018-04-04] MEDS: HYDROXYCHLOROQUINE 200 MG TABLET PO SCH (08:33)
[2018-04-04] MEDS: DOXYCYCLINE 100MG TABLET PO SCH (08:33)
[2018-04-04] MEDS ORDERED: APIXABAN 5 MG TABLET PO SCH (09:00)
[2018-04-04] MEDS ORDERED: DOCU-131 PO (10:27)
[2018-04-04] MEDS ORDERED: CELE200C PO (10:28)
[2018-04-04] MEDS ORDERED: ONDA4TAB10 PO (10:28)
[2018-04-04] MEDS ORDERED: TRAM50TA2 PO (10:29)
[2018-04-04] MEDS ORDERED: OXYC5TAB3 PO (10:31)
[2018-04-04] MEDS ORDERED: KETOROLAC 30 MG/1 ML IV SCH (17:00)
== END 2018-04-04 14:07 | disposition home or self-care (01) | DRG 470 ==
LOC: ORIP 11:35 → 4NOR 18:00
PROVIDERS: ADMIT Orthopaedic Surgery; ATTEND Orthopaedic Surgery
PROC: 0SRB03A Replacement of Left Hip Joint with Ceramic Synthetic Substitute, Uncemented, Open Approach (ICD-10-PCS; principal; 2018-04-03 14:00)
DX: M87.852 Other osteonecrosis, left femur (principal); M21.70 Unequal limb length (acquired), unspecified site; M06.9 Rheumatoid arthritis, unspecified; G47.30 Sleep apnea, unspecified; J84.10 Pulmonary fibrosis, unspecified; R33.9 Retention of urine, unspecified; Z79.899 Other long term (current) drug therapy; Z86.73 Personal history of transient ischemic attack (TIA), and cerebral infarction without residual deficits; Z93.1 Gastrostomy status
CPT/HCPCS: 36415; 85014; 85018; 86850; 86900; 88300; C1713; J0171; J0690; J1100; J1885; J2250; J2704; J2710; J2795; J3010; J3370; C1776; J2370; J3480; J7050; J7120

== ENCOUNTER → 2020-05-06 | Outpatient (CLI) | payer OTHER ==
[~2020-05-06] MED LIST changes: -ASPI-621 PO; +ASPI81TA45 PO; +ATOR20TA37 PO; -ATOR20TA9 PO; +CELE200C PO; +DOCU-131 PO; -EPINEPHRINE 1 MG/ML, 1ML ONE; +HYDR-3653 PO; -HYDR-882 PO; -KETOROLAC 60 MG/2 ML ONE; +ONDA4TAB10 PO; -ONDA4VIA4 IVPush; +ONDA4VIA60 IVPush; +OXYC5TAB3 PO; -ROPIvacaine/PF 0.2%, 20 ML ONE; +SENN-177 NG; -SENN1TAB7 NG; +TRAM50TA2 PO; -TRANEXAMIC ACID 100 MG/ML, 10ML ONE
[2020-05-06 15:39] LABS: BASOPHILS # (AUTO) 0.01 x10^3/uL (0-0.1); BASOPHILS % (AUTO) 0 % (0-1); EOSINOPHILS # (AUTO) 0.06 x10^3/uL (0-0.4); EOSINOPHILS % (AUTO) 1 % (1-7); LYMPHOCYTES # (AUTO) 0.85 x10^3/uL (1-3.4); LYMPHOCYTES % (AUTO) 14 % (22-44); MD NO; MEAN CORPUSCULAR HEMOGLOBIN 33.4 pg (27.5-34.5); MEAN CORPUSCULAR HGB CONC 33.4 g/dL (33.2-36.2); MEAN PLATELET VOLUME 7.7 fL (7.4-10.4); MONOCYTES # (AUTO) 0.45 x10^3/uL (0.2-0.8); MONOCYTES % (AUTO) 8 % (2-9); NEUTROPHILS # (AUTO) 4.53 x10^3/uL (1.8-6.8); NEUTROPHILS % (AUTO) 77 % (42-75); PLATELET COUNT 198 x10^3/uL (130-400); RED BLOOD COUNT 3.96 x10^6/uL (4.38-5.82); RED CELL DISTRIBUTION WIDTH 14.9 % (9.4-14.8)
[2020-05-06 15:40] LABS: HCT (SEDRATE) 39.2 % (39.2-51.8)
[2020-05-06 15:51] LABS: ALBUMIN 3.8 g/dL (3.4-5.0); ANION GAP 6 mmol/L (5-15); CHLORIDE 109 mmol/L (98-107)
[2020-05-06 15:54] LABS: ALANINE AMINOTRANSFERASE 43 U/L (12-78); ALKALINE PHOSPHATASE 95 U/L (45-117); BILIRUBIN,TOTAL 0.4 mg/dL (0.2-1.0); CREATININE 0.97 mg/dL (0.7-1.3); TOTAL PROTEIN 6.9 g/dL (6.4-8.2)
== END | disposition home or self-care (01) ==
LOC: RAD 15:15
PROVIDERS: ATTEND Internal Medicine Rheumatology
DX: Z51.81 Encounter for therapeutic drug level monitoring (principal); M19.072 Primary osteoarthritis, left ankle and foot; M19.071 Primary osteoarthritis, right ankle and foot; M19.042 Primary osteoarthritis, left hand; M19.041 Primary osteoarthritis, right hand; M25.742 Osteophyte, left hand; M25.741 Osteophyte, right hand; M79.89 Other specified soft tissue disorders; M25.842 Other specified joint disorders, left hand; M05.9 Rheumatoid arthritis with rheumatoid factor, unspecified; Z79.899 Other long term (current) drug therapy
CPT/HCPCS: 36415; 77077; 80053; 85025; 85651

== ENCOUNTER 2020-07-24 10:46 | Outpatient (CLI) | payer OTHER | END 2020-07-24 23:59 | disposition home or self-care (01) | LOC: LAB 10:46 | PROVIDERS: ATTEND Internal Medicine Rheumatology | DX: Z02.9 Encounter for administrative examinations, unspecified (principal) ==